=== PATIENT | male | born 1990 | race Two or more races ===

== ENCOUNTER 2017-08-31 10:37 | Emergency (ER) | payer MEDICAID ==
[~2017-08-31] VITALS: Ht 175.3 cm; Wt 99.8 kg
[~2017-08-31 10:37] MED LIST: NKM
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
[2017-08-31] MEDS ORDERED: IBUPROFEN600 MG ORAL (11:50)
[2017-08-31] MEDS ORDERED: ROBAXIN-750750 MG PO (11:50)
[2017-08-31 12:05] VITALS: BP_SYST 105; BP_SYST 115; BP_DIAS 65; BP_DIAS 71
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
== END 2017-08-31 12:05 | disposition home or self-care (01) ==
LOC: EMR 11:27
DX: S80.02XA Contusion of left knee, initial encounter (principal); V09.9XXA Pedestrian injured in unspecified transport accident, initial encounter; Y93.01 Activity, walking, marching and hiking; Y92.414 Local residential or business street as the place of occurrence of the external cause; M25.552 Pain in left hip
CPT/HCPCS: 73502; 99284